=== PATIENT | male | born 1935 | race Caucasian/White ===

== ENCOUNTER 2018-04-01 13:55 | Emergency (ER) | payer MEDICARE ==
[2018-04-01] MEDS ORDERED: Adacel (T-DAP) 0.5 ML VIAL ONE (14:08)
[2018-04-01] MEDS ORDERED: Morphine 4 MG/ML Carpuject ONE (14:08)
[2018-04-01] MEDS ORDERED: Ondansetron ODT 4 MG TAB ONE (14:08)
--- NOTE | 2018-04-01 14:48 | RAD ---
LEFT FOREARM 2 VIEWS: HISTORY: Pain. Emergency exam. COMPARISON: None. FINDINGS: No acute displaced fracture or malalignment. Mild dorsal soft tissue edema. IMPRESSION: No acute displaced fracture or malalignment. POS: [facility]
--- NOTE | 2018-04-01 14:55 | RAD ---
LEFT HAND 3 VIEWS: HISTORY: Fall, left hand pain. FINDINGS: There is an angulated fracture involving the neck of the 4th metacarpal. POS: LAURAH
[2018-04-01] MEDS ORDERED: Fentanyl 100 MCG/2 ML VIAL ONE (15:02)
[2018-04-01] MEDS ORDERED: Lidocaine 2% 10 ML INJ ONE (15:11)
--- NOTE | 2018-04-01 16:20 | RAD ---
LEFT HAND THREE VIEWS: 04/01/18 HISTORY: Fracture, reduction. FINDINGS/IMPRESSION: Comparison made with earlier exam of 2:44 p.m. from the same date. The mildly angulated fracture of the neck of the fourth metacarpal is again seen without significant change in alignment or positioning. POS: [facility]A
[2018-04-01] MEDS ORDERED: Bacitracin Zinc 1 Packet ONE (16:24)
--- NOTE | 2018-04-01 16:29 | RAD ---
LEFT HAND THREE VIEWS: 04/01/18 HISTORY: Fracture. FINDINGS/IMPRESSION: There has been interval placement of a cast since earlier exam of 3:55 p.m. Mildly angulated fracture of the neck of the fourth metacarpal is stable. POS: [facility]
== END 2018-04-01 16:29 | disposition home or self-care (01) ==
LOC: SCSER 13:55
DX: S62.335A Displaced fracture of neck of fourth metacarpal bone, left hand, initial encounter for closed fracture (principal); Z23 Encounter for immunization; E03.9 Hypothyroidism, unspecified; Z87.891 Personal history of nicotine dependence; Z79.82 Long term (current) use of aspirin; Z79.899 Other long term (current) drug therapy; W19.XXXA Unspecified fall, initial encounter
CPT/HCPCS: 12002; 26605; 90471; 90715; 96372; J2270; J3010; Q0162